=== PATIENT | male | born 1975 | race Hispanic/Latino ===

== ENCOUNTER → 2019-01-25 | Outpatient (REF) | END | disposition home or self-care (01) | DRG 951 | LOC: DI 16:45 | PROVIDERS: ATTEND Family Medicine | DX: Z20.1 Contact with and (suspected) exposure to tuberculosis (principal) ==

== ENCOUNTER 2020-12-20 15:32 | Emergency (ER) | payer SELFPAY ==
[~2020-12-20] VITALS: Ht 177.8 cm; Wt 68.0 kg
[2020-12-20] MEDS ORDERED: ZPAK PO (17:26)
[2020-12-20] MEDS ORDERED: AMOX/K CLAV875 M1 PO (17:26)
[2020-12-20 17:55] VITALS: BP 126/79
== END 2020-12-20 17:55 | disposition home or self-care (01) | DRG 195 ==
LOC: ED 15:32
DX: J18.9 Pneumonia, unspecified organism (principal)

== ENCOUNTER 2021-01-15 18:48 | Emergency (ER) | payer SELFPAY ==
[~2021-01-15] VITALS: Ht 177.8 cm; Wt 60.0 kg
[~2021-01-15 18:48] MED LIST: AMOX/K CLAV875 M1 PO; ZPAK PO
[2021-01-15 20:26] VITALS: BP 121/71
== END 2021-01-15 20:30 | disposition home or self-care (01) | DRG 125 ==
LOC: ED 18:48
DX: H57.12 Ocular pain, left eye (principal)

== ENCOUNTER 2021-06-01 18:28 | Emergency (ER) | payer MEDICAID ==
[~2021-06-01] VITALS: Ht 177.8 cm; Wt 59.0 kg
[2021-06-01 20:14] VITALS: BP 130/79
== END 2021-06-01 20:14 | disposition home or self-care (01) ==
LOC: ED 18:28
DX: S01.81XA Laceration without foreign body of other part of head, initial encounter (principal); W20.8XXA Other cause of strike by thrown, projected or falling object, initial encounter; Y93.H3 Activity, building and construction; Y92.009 Unspecified place in unspecified non-institutional (private) residence as the place of occurrence of the external cause; Z86.11 Personal history of tuberculosis